=== PATIENT | male | born 1980 ===

== ENCOUNTER 2021-10-23 18:34 | Emergency (ER) | payer MEDICAID ==
[~2021-10-23] VITALS: Ht 180.3 cm; Wt 118.2 kg
[2021-10-23 18:49] VITALS: BP 181/107
== END 2021-10-23 22:00 | disposition left against medical advice (07) ==
LOC: ER 18:35
DX: F41.9 Anxiety disorder, unspecified (principal); Z53.21 Procedure and treatment not carried out due to patient leaving prior to being seen by health care provider
CPT/HCPCS: 93005